=== PATIENT | female | born 1975 | race Caucasian/White ===

== ENCOUNTER 2016-11-22 12:17 | Emergency (ER) | payer OTHER | END 2016-11-22 14:46 | disposition home or self-care (01) | LOC: D.ER 12:17 | DX: K04.7 Periapical abscess without sinus (principal); K02.9 Dental caries, unspecified; K08.89 Other specified disorders of teeth and supporting structures ==

== ENCOUNTER 2016-11-28 13:03 | Emergency (ER) | payer OTHER | END 2016-11-28 15:08 | disposition home or self-care (01) | LOC: D.ER 13:03 | DX: K08.89 Other specified disorders of teeth and supporting structures (principal) ==

== ENCOUNTER 2016-12-20 20:19 | Emergency (ER) | payer OTHER | END 2016-12-21 00:25 | disposition home or self-care (01) | LOC: D.ER 20:19 | DX: S05.02XA Injury of conjunctiva and corneal abrasion without foreign body, left eye, initial encounter (principal); X58.XXXA Exposure to other specified factors, initial encounter; Y93.89 Activity, other specified; Y92.89 Other specified places as the place of occurrence of the external cause ==

== ENCOUNTER 2017-05-15 11:08 | Emergency (ER) | payer OTHER | END 2017-05-15 14:47 | disposition home or self-care (01) | LOC: D.ER 11:08 | DX: R42 Dizziness and giddiness (principal); J01.90 Acute sinusitis, unspecified; R05 Cough ==